=== PATIENT | male | born 1955 | race African-American/Black ===

== ENCOUNTER → 2024-12-07 14:13 | Outpatient (BNV) | payer OTHER, SELFPAY | PROVIDERS: Visit Provider Internal Medicine Cardiovascular Disease | DX: Z48.812 Encounter for surgical aftercare following surgery on the circulatory system (principal) | CPT/HCPCS: 93010 ==

== ENCOUNTER 2024-12-21 08:24 | Day surgery (SDC) | payer OTHER, SELFPAY ==
--- NOTE | 2024-12-07 | ECG_ITS ---
Test Reason : POSTOP Blood Pressure : */* mmHG Vent. Rate : 78 BPM Atrial Rate : 78 BPM P-R Int : 192 ms QRS Dur : 78 ms QT Int : 370 ms P-R-T Axes : 71 66 62 degrees QTcB Int : 421 ms Normal sinus rhythm Normal ECG No previous ECGs available Referred By: Princess Figueroa Electronically Signed By: ELMA PARRA MD
--- OUTSIDE RECORDS SUMMARY | 2024-12-07 12:00 | XMS_ITS | Patient Health Record ---
Author Organization [facility] Address [address] [place] [address] Care Team Providers Care Sampler First Name Role Phone Funmi Kaur M.D. Primary Care Provider Alex Denney Unavailable [phone] Allergies No Known Allergies Reason For Referral Referring Provider First Name Funmi Referring Provider Last Name Vincent Referred Organization [facility] Referred Provider Alex Webster Referred Address [address],[place], [place],[address], Referred Provider Specialty Gastroentero logy Referral Priority Routine Medications Medication SIG (Take, Route, Frequency, Duration) Notes Start Date End Date Status Vitamin C Active Vitamin D3 Active Multivitamin - 1 tablet Orally Once a day Active Tylenol 325 MG 1 tablet as needed O rally every 6 hrs Active MiraLax (colon prep) 17 GM/SCOOP 1 238 Gm bottle mixed with Gatorade or Crystal Light orally begin at 5:00 p.m. the day before the procedure for 1 days 10/07/2024 Active Metoprolol Succinate 50 MG 1 capsule Ora lly Once a day Active Dulcolax (colon prep) 5 MG take at 3:00 p.m and 7:00p.m. Orally two tablets twice a day for one day for 1 days 10/07/2024 Active Pantoprazole Sodium 40 MG 1 tablet 1/2 t o 1 hour before morning meal Orally Once a day 09/20/2024 Active oxyCODONE HCl 5 MG 1 tablet as needed O rally every 6 hrs Active Jardiance 10 MG 1 tablet Orally Once a day Active Aspirin 81 81 MG 1 tablet Orally Once a day Active Social History Tobacco Use: Social History Observation Description Date Details (start date - stop date) Former Smoker NA - NA Tobacco Control (Standard) Question Answer Notes Tobacco use: Former smoker How long has it been since you last smoked? 5-10 years AUDIT-C (Standard) Question Answer Notes Did you have a drink contain ing alcohol in the past year? Yes How often did you have a dri nk containing alcohol in the past year? Never (0 point) How many drinks did you have on a typical day when you were drinking in the past year? 1 or 2 drinks (0 point) How often did you have six o r more drinks on one occasion in the past year? Never (0 point) Points 0 Interpretation Negative Problems Problem Type SNOMED Code ICD Code Onset Dates Problem Status W/U Status Risk Notes Problem Colon cancer screening (Z12.11) Active confirmed Problem Gastroesophageal reflux disease (207943475) GERD (gastroesopha geal reflux disease) (K21.9) Active confirmed Problem History of polyp of colon (situation) (096043092) History of colon polyps (Z86.0100) Active confirmed Vital Signs Blood pressure diastolic 11 mm Hg 09/20/2024 Height 70.5 in 09/20/2024 Blood pressure systolic 11 1 mm Hg 09/20/2024 Weight 270 lbs 09/20/2024 BMI 38.19 kg/m2 09/20/2024 Procedures Procedure Date Ordered Date Performed Result Body Sit e UPPER GI ENDOSCOPY 09/20/2024 N/A COLONOSCOPY 09/20/2024 N/A Encounters Encounter Location Date Provider Diagnosis [facility] [address] [place] [id number] 09/20/2024 Alex Webster GERD (gastroesophageal reflux disease) K21.9 ; History of colon polyps Z86.0100 and Colon cancer screening Z12.11 [facility] [address] [place] [phone] 05/25/2024 Alex Webster [facility] [address] [place] [phone] 09/20/2024 Alex Webster Assessments Encounter Date Diagnosis (ICD Code) Assessment Notes Treatment Notes Treatment Clinical Notes Section Notes 09/20/2024 GERD (gastroesophag eal reflux disease) (ICD-10 - K21.9) Overall, Markel does not appear to be having any new nor significant GI complaints at the present time. Given his longstanding history of reflux I did recommend an upper endoscopy for evaluation to rule out any component of significant esophagitis, Diggs's esophagus, and/or hiatal hernia. In the meantime I did advise him to certainly continue his daily pantoprazole for symptomatic relief. He is aware that diet and weight play a role in his symptoms and he needs to try to curtail both of those. I have also recommended a follow-up screening colonoscopy on the same day given his reported history of polyps and his last colonoscopy being reportedly over 5 years ago. We did review the rationale for that in regard to colon cancer prevention. Full consent has been obtained from him for both procedures, including risks of bleeding and perforation. The procedures will be done with monitored anesthesia care. He was given the below instructions regarding adjustment of his medications for the procedures. Markel was comfortable with this plan. Thank you again for allowing me to participate in Markel's care. I shall continue to keep you advised of his progress.. 09/20/2024 History of colon polyps (ICD-10 - Z86.0100) Overall, Markel does not appear to be having any new nor significant GI complaints at the present time. Given his longstanding history of reflux I did recommend an upper endoscopy for evaluation to rule out any component of significant esophagitis, Diggs's esophagus, and/or hiatal hernia. In the meantime I did advise him to certainly continue his daily pantoprazole for symptomatic relief. He is aware that diet and weight play a role in his symptoms and he needs to try to curtail both of those. I have also recommended a follow-up screening colonoscopy on the same day given his reported history of polyps and his last colonoscopy being reportedly over 5 years ago. We did review the rationale for that in regard to colon cancer prevention. Full consent has been obtained from him for both procedures, including risks of bleeding and perforation. The procedures will be done with monitored anesthesia care. He was given the below instructions regarding adjustment of his medications for the procedures. Markel was comfortable with this plan. Thank you again for allowing me to participate in Markel's care. I shall continue to keep you advised of his progress.. 09/20/2024 Colon cancer screening (ICD-10 - Z12.11) Overall, Markel does not appear to be having any new nor significant GI complaints at the present time. Given his longstanding history of reflux I did recommend an upper endoscopy for evaluation to rule out any component of significant esophagitis, Diggs's esophagus, and/or hiatal hernia. In the meantime I did advise him to certainly continue his daily pantoprazole for symptomatic relief. He is aware that diet and weight play a role in his symptoms and he needs to try to curtail both of those. I have also recommended a follow-up screening colonoscopy on the same day given his reported history of polyps and his last colonoscopy being reportedly over 5 years ago. We did review the rationale for that in regard to colon cancer prevention. Full consent has been obtained from him for both procedures, including risks of bleeding and perforation. The procedures will be done with monitored anesthesia care. He was given the below instructions regarding adjustment of his medications for the procedures. Markel was comfortable with this plan. Thank you again for allowing me to participate in Markel's care. I shall continue to keep you advised of his progress.. Plan Of Treatment Pending Test Test Name Order Date UPPER GI ENDOSCOPY 09/20/2024 COLONOSCOPY 09/20/2024 Next Appt Details Provider Name:Alex Ayesha Webster , 12/21/2024 09:40:00 AM, [address] [place] [address] , [place], [place], [phone], Insurance Providers Payer Name Payer Address Payer Phone Subscriber Number Group Number Insured Name Patient Relationship to Insured Coverage Start Date Coverage End Date [facility] [employer] 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
--- OUTSIDE RECORDS SUMMARY | 2024-12-07 12:01 | XMS_ITS | Clinical Summary ---
Author Organization [facility] Address [address] [place] [address] Care Team Providers Care Aquaculture Program Director Name Role Phone Krista Saavedra MD Primary Care Provider Medical History Medical History Date Comments Prediabetes 12/06/2019 DX:Prediabetes NOE (obstructive sleep apnea) 12/06/2019 DX :NOE (obstructive sleep apnea) Fibromyalgia 12/06/2019 DX:Fibromyalgia BPH (benign prostatic hyperplasia) 12/06/2019 DX:BPH (benign prostatic hyperplasia) Gout 12/06/2019 DX:Gout Anxiety 12/06/2019 DX:Anxiety Depression 12/06/2019 DX:Depression PTSD (post-traumatic stress disorder) 12/06/2019 DX:PTSD (post-traumatic stress disorder) Hypertension 12/06/2019 DX:Hypertension Hyperlipidemia 12/06/2019 DX:Hyperlipidemi a GERD (gastroesophageal reflux disease) 12/06/2019 DX:GERD (gastroesophageal reflux disease) Tubular adenoma 12/06/2019 DX:Tubular adeno ma DJD (degenerative joint disease) 12/06/2019 DX:DJD (degenerative joint disease) Family History Medical History Relation Name Comments Crohn's disease Father Relation Name Status Comments Father Social History Tobacco Use Types Packs/Day Years Used Date Smoking Tobacco: Never Assessed Sex and Gender Information Value Date Recorded Sex Assigned at Not on file Legal Sex Male 7:28 AM EST Gender Identity Not on file Sexual Orientation Not on file Obstetrics History Plan of Treatment Health Maintenance Due Date Last Done Comments DTaP,Tdap,and Td Vaccines (1 - Tdap) 1976 Pneumococcal Vaccine: 50+ Ye ars (1 of 1 - PCV) 11/29/2007 Zoster Vaccines (2 of 2) 08/30/2019 07/05/2019 COVID-19 Vaccine ( - 2023-2 5 season) 2024 Influenza Vaccine (Season Ended) 2025 RSV Immunization Adult Patie nts (1 - 1-dose 75+ series) 2032 HIB Vaccines Aged Out No longer eligi ble based on patient's age to complete this topic HPV Vaccines Aged Out No longer eligi ble based on patient's age to complete this topic Hepatitis A Vaccines Aged Out No long er eligible based on patient's age to complete this topic Hepatitis B Vaccines Aged Out No long er eligible based on patient's age to complete this topic IPV Vaccines Aged Out No longer eligi ble based on patient's age to complete this topic MMR Vaccines Aged Out No longer eligi ble based on patient's age to complete this topic Meningococcal ACWY Vaccine Aged Out N o longer eligible based on patient's age to complete this topic Meningococcal B Vaccine Aged Out No l onger eligible based on patient's age to complete this topic RSV Immunization Patients Un dillon 20 months Aged Out No longer eligible b ased on patient's age to complete this topic Varicella Vaccines Aged Out No longer eligible based on patient's age to complete this topic Care Teams Aquaculture Program Director Relationship Specialty Start Date End Date Krista Saavedra MD [address] [place] [id number] PCP - General Internal Medicine 08/19/19
[2024-12-07 13:18] VITALS: BP 168/87; PULSE 86; RESP 16; O2SAT 96; BMI 36.8
--- NOTE | 2024-12-07 13:52 | HO.ANESPROP2 ---
Documented by User: Princess Figueroa NP 12/19/24 15:08 HPI - Anesthesia Eval Consult details Narrative: 69yo M for Upper Endoscopy and Colonoscopy, 12/21/24 No recent illness Chronic all over pain No CP/SOB with stationary bike Hx multiple [place] in in setting of drug use (last cocaine use 1993) - no longer follows cardiology Episode of CP 03/2024 to [facility] ER - non cardiac, likely GERD - negative EKG, negative trops Anesthesia Pre-Procedure Meds Is the patient on any of the following meds?: SGLT2 Inhib PMFSH Past Medical History Medical History BPH (benign prostatic hyperplasia) PTSD (post-traumatic stress disorder) CKD (chronic kidney disease) Fibromyalgia Low back pain Fatty liver Anxiety and depression Seasonal allergies MERRILL (dyspnea on exertion) Gout Obesity (BMI 30-39.9) History of colon polyps GERD (gastroesophageal reflux disease) NOE on CPAP Arthritis HTN (hypertension) Foot drop Diabetes Hx of myocardial infarction Sciatica Hx of bronchitis Family History Family history of problems with anesthesia: No Surgical History Surgical History Hx of colonoscopy History of esophagogastroduodenoscopy (EGD) History of Problems with Anesthesia: No Social History Social History Are you a primary career portals teacher to a significant other at home: No Do you presently have visiting nurse or other home services: No Patient Tobacco Use Status: Former Tobacco user Tobacco use type: Cigarette Use of substances other than those prescribed or required for medical reasons: No Substance Use Type: Former Substance User Substance Use Type Other:: crack, THC none since 1993 Have you been hit, kicked, punched, or otherwise hurt by someone within the past year? If so, by whom?: No Are you DNR?: No Advance Directives: No Advance Directives Information Provided: Yes Advance Directives on File: No Poor oral hygiene: No Meds Allergies Allergy/AdvReac Type Severity Reaction Status Date / Time sulfamethoxazole (From Allergy Itching, Verified 12/07/24 13:16 Bactrim) dizziness trimethoprim (From Bactrim) Allergy Itching, Verified 12/07/24 13:16 dizziness Home Medications ?Medication ?Instructions ?Recorded ?Confirmed ?Last Taken ?Type Vitamin C 500 mg PO DAILY 12/06/24 12/07/24 Unknown History Vitamin D3 12/06/24 Unknown History acetaminophen 325 mg tablet 325 mg PO QID PRN Pain 12/06/24 12/06/24 Unknown History (Tylenol) aspirin 81 mg tablet 81 mg PO DAILY 12/06/24 12/21/24 12/13/24 History empagliflozin 10 mg tablet 10 mg PO DAILY 12/06/24 12/21/24 12/18/24 History (Jardiance) metoprolol succinate 50 mg capsule 50 mg PO DAILY 12/06/24 12/21/24 12/21/24 08:00 History sprinkle, ext. release 24 hr multivitamin 1 tab PO DAILY 12/06/24 12/07/24 Unknown History oxycodone 5 mg tablet 5 mg PO Q6H PRN Pain 12/06/24 12/06/24 Unknown History pantoprazole 40 mg tablet,delayed 40 mg PO DAILY 12/06/24 12/06/24 Unknown History release allopurinol 300 mg tablet 300 mg PO DAILY 12/07/24 12/07/24 Unknown History cyclobenzaprine 5 mg tablet 5 mg PO BEDTIME 12/07/24 12/07/24 Unknown History lidocaine 5 % topical patch 1 patch topical DAILY PRN Pain 12/07/24 12/07/24 Unknown History (Lidoderm) Exam Height,Weight and Vital Signs: Height 5 ft 10.5 in Weight 117.934 kg Last Vital Signs Pulse 86 12/07/24 13:18 Resp 16 12/07/24 13:18 BP 168/87 H 12/07/24 13:18 Pulse Ox 96 12/07/24 13:18 O2 Del Method Room Air 12/07/24 13:18 Pertinent Lab Results Pertinent Lab Results: Lab Results 12/07/24 Range/Units 14:22 WBC 6.8 (4.8-10.8) X10*3/uL RBC 5.28 (4.60-5.80) X10*6/uL Hgb 14.4 (14.0-18.0) g/dl Hct 44.6 (42.0-52.0) % MCV 84.5 (80.0-98.0) fL MCH 27.3 (27.0-33.0) pg MCHC 32.3 (31.0-36.0) g/dl RDW 17.8 H (11.0-16.0) % Plt Count 235 (160-400) X10*3/uL MPV 10.9 (9.4-12.4) fL Absolute Nucleated RBC 0.000 (0.0-0.012) X10*3/uL Nucleated RBC % (auto) 0.0 (0.0-0.2) /100WBC Sodium 137 (135-145) mmol/L Potassium 4.7 (3.3-5.1) mmol/L Chloride 103 (96-108) mmol/L Carbon Dioxide 24 (22-29) mmol/L Anion Gap 15 (12-20) BUN 22 H (9-16) mg/dL Creatinine 1.48 H (0.5-1.4) mg/dL Estim Creat Clear Calc 62.3 Estimated GFR 47 Random Glucose 111 (60-115) mg/dL Calcium 9.4 (8.4-10.2) mg/dL Narrative Narrative: EKG 12/2024 Vent. Rate : 78 BPM Atrial Rate : 78 BPM P-R Int : 192 ms QRS Dur : 78 ms QT Int : 370 ms P-R-T Axes : 71 66 62 degrees QTcB Int : 421 ms Normal sinus rhythm Normal ECG No previous ECGs available Airway Mallampati Class: III TM Dist: >3cm Neck ROM: Limited (fibromyalgia) Loose/Missing/Broken Teeth: No Heart: RRR Lungs: CTAB Assessment and Plan Assessment Anesthesia Assessment: Anesthesia Plan Discussed and PAT Visit Final Anesthetic Review Family History of Problems with Anesthesia: No History of Problems with Anesthesia: No Documented by User: Andre King MD 12/21/24 09:02 [facility] Past Medical History Medical History BPH (benign prostatic hyperplasia) PTSD (post-traumatic stress disorder) CKD (chronic kidney disease) Fibromyalgia Low back pain Fatty liver Anxiety and depression Seasonal allergies MERRILL (dyspnea on exertion) Gout Obesity (BMI 30-39.9) History of colon polyps GERD (gastroesophageal reflux disease) NOE on CPAP Arthritis HTN (hypertension) Foot drop Diabetes Hx of myocardial infarction Sciatica Hx of bronchitis Cognitive capacity: normal Functional capacity: independent ambulation Surgical History Surgical History Hx of colonoscopy History of esophagogastroduodenoscopy (EGD) Social History Social History Are you a primary career portals teacher to a significant other at home: No Do you presently have visiting nurse or other home services: No Patient Tobacco Use Status: Former Tobacco user Tobacco use type: Cigarette Use of substances other than those prescribed or required for medical reasons: No Substance Use Type: Former Substance User Substance Use Type Other:: crack, THC none since 1993 Have you been hit, kicked, punched, or otherwise hurt by someone within the past year? If so, by whom?: No Are you DNR?: No Advance Directives: No Advance Directives Information Provided: Yes Advance Directives on File: No Poor oral hygiene: No Meds Allergies Allergy/AdvReac Type Severity Reaction Status Date / Time sulfamethoxazole (From Allergy Itching, Verified 12/07/24 13:16 Bactrim) dizziness trimethoprim (From Bactrim) Allergy Itching, Verified 12/07/24 13:16 dizziness Home Medications ?Medication ?Instructions ?Recorded ?Confirmed ?Last Taken ?Type Vitamin C 500 mg PO DAILY 12/06/24 12/07/24 Unknown History Vitamin D3 12/06/24 Unknown History acetaminophen 325 mg tablet 325 mg PO QID PRN Pain 12/06/24 12/06/24 Unknown History (Tylenol) aspirin 81 mg tablet 81 mg PO DAILY 12/06/24 12/21/24 12/13/24 History empagliflozin 10 mg tablet 10 mg PO DAILY 12/06/24 12/21/24 12/18/24 History (Jardiance) metoprolol succinate 50 mg capsule 50 mg PO DAILY 12/06/24 12/21/24 12/21/24 08:00 History sprinkle, ext. release 24 hr multivitamin 1 tab PO DAILY 12/06/24 12/07/24 Unknown History oxycodone 5 mg tablet 5 mg PO Q6H PRN Pain 12/06/24 12/06/24 Unknown History pantoprazole 40 mg tablet,delayed 40 mg PO DAILY 12/06/24 12/06/24 Unknown History release allopurinol 300 mg tablet 300 mg PO DAILY 12/07/24 12/07/24 Unknown History cyclobenzaprine 5 mg tablet 5 mg PO BEDTIME 12/07/24 12/07/24 Unknown History lidocaine 5 % topical patch 1 patch topical DAILY PRN Pain 12/07/24 12/07/24 Unknown History (Lidoderm) Exam Exam Date and Time: 12/21/2024 Airway Other: normal orientation Assessment and Plan Final Anesthetic Review NPO: Yes ASA Class: III Final Preanesthetic Review: No Changes in Pt Med Stat, Meds/Allgs Chart Reviewed, Consent Obtained/Reviewed and Anes Risks/Benef Reviewed Patient Risk: Intermediate Procedure Risk: Low Anesthetic Plan Anesthetic Plan: MAC: Disposition: Standard PACU
[2024-12-07 15:02] LABS: Hematocrit 44.6 % (42.0-52.0); Hemoglobin 14.4 g/dl (14.0-18.0); Mean Corpuscular HGB Conc 32.3 g/dl (31.0-36.0); Mean Corpuscular Hemoglobin 27.3 pg (27.0-33.0); Mean Corpuscular Volume 84.5 fL (80.0-98.0); NRBC Abs Auto 0.000 X10*3/uL (0.0-0.012); NRBC Pct Auto 0.0 /100WBC (0.0-0.2); Platelet Count 235 X10*3/uL (160-400); Red Blood Count 5.28 X10*6/uL (4.60-5.80); White Blood Count 6.8 X10*3/uL (4.8-10.8)
[2024-12-07 15:32] LABS: Anion Gap 15 (12-20); Blood Urea Nitrogen 22 mg/dL (9-16); Calcium 9.4 mg/dL (8.4-10.2); Carbon Dioxide 24 mmol/L (22-29); Chloride 103 mmol/L (96-108); Creatinine Clr Calc Pharmacy 62.3; Estimated Glomerular Filt Rate 47; Potassium 4.7 mmol/L (3.3-5.1); Sodium 137 mmol/L (135-145)
[2024-12-21 08:53] VITALS: BMI 37.7
[2024-12-21 09:11] VITALS: BP 148/89; PULSE 90; RESP 18; TEMP 36.1; O2SAT 97
[2024-12-21] MEDS: Lactated Ringers 1,000 ML 100 ML IVCONT (09:27)
[2024-12-21 09:39] LABS: Glucose, Whole Blood 110 mg/dL (60-115)
[2024-12-21 10:50] VITALS: BP 139/81; PULSE 78; RESP 16; TEMP 37; O2SAT 97
--- NOTE | 2024-12-21 10:55 | PM.OP ---
Brief Operative Note Date of Service: 12/21/24 Pre-op diagnosis: GERD, Screening Post-op diagnosis: other (Hiatal hernia, Gastric polyps, Diverticulosis) Procedure: EGD with biopsies, Colonoscopy to the cecum Surgeon: Alex Webster MD Anesthesia: MAC Was an Metal Room Dental Technician used for this Procedure?: No Estimated blood loss (mL): 2.0 Pathology: other (A. EG Junction at 38cm B. Gastric polyps) Condition: stable Disposition: PACU
[2024-12-21 11:05] VITALS: BP 134/81; PULSE 77; RESP 18; TEMP 37; O2SAT 97
--- NOTE | 2024-12-21 11:56 | OP_ITS ---
DATE OF SERVICE: 12/21/2024 SURGEON: Alex Webster MD INDICATIONS: The patient presents for evaluation of gastroesophageal reflux, personal history of colon polyps, and colorectal cancer screening. Full consent was obtained from him for this, including risks of bleeding and perforation. PREOPERATIVE DIAGNOSIS: POSTOPERATIVE DIAGNOSIS: PROCEDURE PERFORMED: Esophagogastroduodenoscopy with biopsies, and colonoscopy to cecum. ESTIMATED BLOOD LOSS: COMPLICATIONS: ANESTHESIA: Medication used, monitored anesthesia care. ASSISTANTS: SPECIMENS: PREOPERATIVE DIAGNOSES: Gastroesophageal reflux, personal history of colon polyps, and colorectal cancer screening. POSTOPERATIVE DIAGNOSES: Gastroesophageal reflux, personal history of colon polyps, and colorectal cancer screening, hiatal hernia, gastric polyps, diverticulosis, and internal hemorrhoids. DESCRIPTION OF PROCEDURE: The patient was placed in the left lateral decubitus position. The Olympus video gastroscope was passed in the posterior oropharynx and upper esophagus under direct vision. The scope was passed slowly to the distal esophagus. The gastroesophageal junction was seen at 38 cm. There was some slight irregularity consistent with reflux, but no evidence of esophagitis nor any definitive evidence of Diggs mucosa. The scope entered the stomach. There was a small hiatal hernia. The scope was advanced to pylorus and the duodenum was cannulated to the descending portion. The duodenum including the bulb appeared normal without mass or ulceration. The scope was withdrawn back in the stomach. The gastric antrum and body appeared normal with good peristalsis. The scope was retroflexed visualizing the proximal stomach carefully, which appeared normal, without any sign of mass or ulceration, other than multiple hyperplastic appearing polyps. Several of these were biopsied. The scope was straightened and withdrawn back to the esophagus. Biopsies were obtained from the EG junction at 38 cm. Proximal to this the esophageal mucosa appeared normal. The scope was withdrawn from the patient. He was turned around for the colonoscopy. The digital rectal exam revealed no abnormalities. The Olympus video pediatric colonoscope was entered into the rectum and advanced easily to the cecum. Once in the cecum, I did identify normal-appearing cecal pouch with appendiceal orifice. After irrigation and suctioning, I was able to visualize the entire cecum and ileocecal valve, which appeared normal. Scope was slowly withdrawn assessing all mucosal surfaces carefully. Preparation was good throughout most of the colon, although there were some areas in the sigmoid colon that had some overlying liquid and vegetable matter that had to be irrigated and removed as best as possible, although not completely. I did not visualize any sign of polyps There was a mild amount of diverticulosis in the ascending colon and a moderate amount of diverticulosis in the sigmoid colon. The scope was retroflexed visualizing internal hemorrhoids, but no other pathology. The rectal mucosa appeared normal. The scope was straightened and withdrawn from the patient. He tolerated the procedure well and was returned to recovery area in stable condition. IMPRESSION: 1. Small hiatal hernia, gastroesophageal reflux. 2. Gastric polyps. 3. Diverticulosis. 4. Internal hemorrhoids. PLAN: The results of biopsies will be checked. I would recommend a repeat colonoscopy within 5 years given his history of polyps in the past. He will continue his daily pantoprazole for his reflux. He was advised to resume his aspirin by tomorrow. He will otherwise see me on a p.r.n. basis. MD NINA Winslow/EDWIN / [id number] MTDD
== END 2024-12-21 12:23 | disposition home or self-care (01) ==
PROVIDERS: Referring Provider Nurse Practitioner; Visit Provider Internal Medicine
PROC: (CPT 45378; principal; 2024-12-21 09:40)
DX: Z12.11 Encounter for screening for malignant neoplasm of colon (principal); Z86.0101 Personal history of adenomatous and serrated colon polyps; K57.30 Diverticulosis of large intestine without perforation or abscess without bleeding; K64.8 Other hemorrhoids; K21.9 Gastro-esophageal reflux disease without esophagitis; K31.7 Polyp of stomach and duodenum; K44.9 Diaphragmatic hernia without obstruction or gangrene; G47.33 Obstructive sleep apnea (adult) (pediatric); I25.2 Old myocardial infarction; F19.11 Other psychoactive substance abuse, in remission; E11.9 Type 2 diabetes mellitus without complications; M21.372 Foot drop, left foot; M21.371 Foot drop, right foot; J40 Bronchitis, not specified as acute or chronic; Z79.82 Long term (current) use of aspirin; Z79.84 Long term (current) use of oral hypoglycemic drugs; Z79.899 Other long term (current) drug therapy; Z99.89 Dependence on other enabling machines and devices; Z88.2 Allergy status to sulfonamides; Z87.891 Personal history of nicotine dependence
CPT/HCPCS: 45378; 43239; 36415; 80048; 82947; 85027; 88305; 88313; 88342; 93005; J2704